=== PATIENT | female | born 1970 | race Caucasian/White ===

== ENCOUNTER → 2017-01-28 07:36 | Outpatient (CLI) | payer OTHER ==
[~2017-01-28] VITALS: Ht 160 cm; Wt 73.6 kg
--- NOTE | ~2017-01-28 | HEMODYNAMI ---
PATIENT:EUGENIE BRIAN MEDICAL RECORD: [id number] : 66 LOCATION:[facility] ADMISSION DATE: 01/28/17 Generatedon:01/28/20179:13 Patient name: EUGENIE BRIAN Patient #: [id number] SSN: : 1970 Date of study: 01/28/2017 Page: Of Hemodynamic Procedure Report Patient Data Patient Demographics Procedure consent was obtained First Name: EUGENIE Gender: Female Last Name: SNEHAL : 1970 Middle Initial: L Age: 46 year(s) Patient #: [id number] Race: Unknown Additional ID: [id number] Contact details [address]: [address] [place] [address] rd State: [place] City: [place] Zip code: [address] Past Medical History Allergies Allergen Reaction Date Comments Reported Other allergy 01/28/2017 morphine, reglan Admission Admission Data Admission Date: 01/28/2017 Admission Time: 7:36 Height (in.): 63 BSA: 1.77 (m2) Height (cm.): 160.02 BMI: 28.7 (kg/m2) Weight (lbs.): 162 Weight (kg.): 73.48 Lab Results Lab Result Date: 01/28/2017 Lab Result Time: 7:55 Biochemistry Name Units Result Min Max BUN mg/dl 14 --(--*-)-- 7 18 Creatinine mg/dl 1.1 --(--*-)-- 0.6 1.3 CBC Name Units Result Min Max Hematocrit % 42.9 --(*---)-- 42 54 Hemoglobin g/dl 14.9 --(-*--)-- 13.5 17.5 Procedure Procedure Types Cath Procedure Diagnostic Procedure [facility] w/Coronaries Miscellaneous Procedures Moderate Sedation up to 15 minutes Procedure Description Procedure Date Procedure Date: 01/28/2017 Procedure Start Time: 9:04 Procedure End Time: 9:12 Procedure Staff Name Function Huy Fitzpatrick MD Performing Physician Avelina Linares RT Scrub Antolin Park RN Nurse Grayson Pickett RT Monitor Procedure Data Cath Procedure Fluoroscopy Diagnostic fluoroscopy Total fluoroscopy Time: 0.7 time: 0.7 min min Diagnostic fluoroscopy Total fluoroscopy dose: 135 dose: 135 mGy mGy Contrast Material Contrast Material Type Amount (ml) Isovue 300 45 Entry Location Entry Primary Successful Side Size Upsize Upsize Entry Closure Succes sful Closure Location (Fr) 1 (Fr) 2 (Fr) Remarks Device Remarks Femoral Right 5 Fr Vascade artery Closure System Estimated blood loss: 5 ml Diagnostic catheters Device Type Used For End Catheter Placement Cordis 5Fr Pigtail Procedure Catheter (MP) Cordis 5Fr JL 4.0 Procedure Catheter (MP) Cordis 5Fr 3DRC Catheter Procedure (MP) Procedure Complications No complications Procedure Medications Medication Administration Route Dosage Oxygen NC 2 l/min Heparin Flush Bag added to field 2 bags (1000units/500ml NS) Benadryl I.V. 50 mg 0.9% NaCl I.V. 100 ml/hr Fentanyl I.V. 50 mcg Versed I.V. 1 mg Fentanyl I.V. 50 mcg Versed I.V. 1 mg Fentanyl I.V. 50 mcg Hemodynamics Rest BSA: 1.77 (m2) HGB: 14.9 (g/dl) O2 Consumption: Estimated: 174.63 (ml/min) O2 Co nsumption indexed: Estimated:98.66 (ml/min/m) Heart Rate: 70 (bpm) Snapshots Pre Cath Intra NCS Post Cath Vital Signs Time Heart Resp SPO2 etCO2 LH9owey NIBP (mmHg) Rhythm Pain Sedation Rate (ipm) (%) (mmHg) (mmHg) Status Level (bpm) 8:46:31 85 20 99 0 0 141/87(109) NSR 0 (11) 10(A) , No pain 8:50:43 71 20 98 0 0 146/83(120) NSR 0 (11) 10(A) , No pain 8:55:29 73 17 100 0 0 144/86(122) NSR 0 (11) 10(A) , No pain 8:59:41 92 19 98 0 0 148/88(118) NSR 0 (11) 10(A) , No pain 9:03:53 86 17 94 0 0 125/80(105) NSR 0 (11) 10(A) , No pain 9:08:01 86 18 94 0 0 125/84(113) NSR 0 (11) 9(A) , No pain 9:10:55 96 18 95 0 0 131/80(108) NSR 0 (11) 9(A) , No pain Medications Time Medication Route Dose Verified Delivered Reason Notes Effect iveness by by 8:55:27 Oxygen NC 2 Antolin Antolin Per l/min Xavier Park RN physician RN 8:55:36 Heparin Flush added 2 Antolin Antolin used for Bag to bags Xavier Park RN procedure (1000units/500ml field RN NS) 8:55:44 Benadryl I.V. 50 mg Antolin Antolin Per Xavier Park RN physician RN 8:55:55 0.9% NaCl I.V. 100 Antolin Antolin Per ml/hr Xavier Park RN physician RN 9:03:44 Fentanyl I.V. 50 Antolin Antolin for [facility] Xavier Park RN sedation RN 9:03:52 Versed I.V. 1 mg Antolin Antolin for Xavier Park RN sedation RN 9:05:15 Fentanyl I.V. 50 Antolin Antolin for rishi Park RN sedation RN 9:05:20 Versed I.V. 1 mg Antolin Antolin for Xavier Park RN sedation RN 9:06:05 Fentanyl I.V. 50 Antolin Antolin for [facility] Xavier Park RN sedation needle leader Log Time Note 8:17:44 Antolin Park RN sent for patient. Start room use. 8:20:18 Time tracking: Regular hours 8:20:23 Plan of Care:Hemodynamics will remain stable., Cardiac rhythm will remain stable., Comfort level will be maintained., Respiratory function will remain adequate., Patient/ family verbilizes understanding of procedure., Procedure tolerated without complication., Recovers from procedure without complications.. 8:37:49 Patient received from Pre/Post Procedure Room to CCL 1 Alert and oriented. Tansferred to table in Supine position. 8:37:50 Warm blankets applied, and ximena hugger turned on for patient comfort. 8:37:50 Correct patient and procedure confirmed by team. 8:37:52 Signed procedure consent form obtained from patient. 8:37:53 ECG and BP/O2 sat monitors applied to patient. 8:37:54 Full Disclosure recording started 8:38:11 H&P Date Dictated: 01/06/2017 Within 30 days and on chart., H&P Addendum completed by physician on day of procedure. (MUST COMPLETE FOR ALL OUTPATIENTS). 8:38:16 Pre-procedure instructions explained to patient. 8:38:17 Pre-op teaching completed and patient verbalized understanding. 8:38:19 Family in waiting room. 8:38:33 Patient NPO since Midnight. 8:45:29 Vital chart was started 8:49:29 Baseline sample Acquired. 8:49:37 Rhythm: sinus rhythm 8:50:00 Patient allergic to Other allergymorphine, reglan 8:50:03 Is the patient allergic to Iodine/contrast media? No. 8:50:05 Is patient on blood thinner?Yes 8:50:08 ACC The patient was administered the following blood thiners within the last 24 hours: ACCPlavix 8:50:11 Patient diabetic? No. 8:53:44 HCG/Urine : completed and on chart, negative 8:53:51 Previous problem with sedation/anesthesia? No ? 8:53:52 Snore? Yes 8:53:53 Sleep apnea? Yes 8:53:57 Deviated septum? No 8:53:57 Opens mouth fully? Yes 8:53:58 Sticks out tongue? Yes 8:54:01 Airway obstruction? Yes asthma 8:54:05 Dentures? No ? 8:54:18 Pre procedure: right dorsailis pedis pulse 2+ Normal; easily identifiable; not easily obliterated 8:54:20 Patient pain scale 0/10 ?. 8:54:27 IV patent on arrival in left forearm with 0.9% NaCl at [facility]. 8:55:03 Lab Result : BUN 14 mg/dl 8:55:03 Lab Result : Hemoglobin 14.9 g/dl 8:55:03 Lab Result : Creatinine 1.1 mg/dl 8:55:03 Lab Result : Hematocrit 42.9 % 8:55:06 Lab results completed and on chart. 8:55:27 Oxygen 2 l/min NC was administered by Antolin Park RN; Per physician; 8:55:29 Right groin area was prepped with chlora-prep and draped in sterile fashion 8:55:30 Alarms reviewed by R. N. 8:55:30 Sharps counted by scrub and verified by R.N. 8:55:32 Use device set Femoral Dx 8:55:34 Tegaderm 4 x 4 opened to sterile field. 8:55:34 Acist Manifold opened to sterile field. 8:55:35 Acist Hand Control opened to sterile field. 8:55:36 Heparin Flush Bag (1000units/500ml NS) 2 bags added to field was administered by Antolin Park RN; used for procedure; 8:55:37 Acist Syringe opened to sterile field. 8:55:37 Bag Decanter opened to sterile field. 8:55:37 Medline Cath Pack opened to sterile field. 8:55:38 Terumo 5Fr Marion Sheath opened to sterile field. 8:55:39 St Hung 260cm J .035 wire opened to sterile field. 8:55:39 Diagnostic Infinity 5Fr Multipack catheter opened to sterile field. 8:55:44 Benadryl 50 mg I.V. was administered by Antolin Park RN; Per physician; 8:55:55 0.9% NaCl 100 ml/hr I.V. was administered by Antolin Park RN; Per physician; 8:56:05 Patient Height : 63 cm 8:56:10 Patient Weight : 162 kg 9:03:09 Physician arrived 9:03:10 --------ALL STOP TIME OUT------ 9:03:11 Final Timeout: patient, procedure, and site verified with staff and physician. All members of the team are in agreement. 9:03:12 Right groin site verified by team. 9:03:15 Physical assessment completed. ASA score P 2 - A patient with mild systemic disease as per Huy Fitzpatrick MD. 9:03:18 Sedation plan: IV Moderate Sedation Versed, Fentanyl 9:03:44 Fentanyl 50 mcg I.V. was administered by Antolin Park RN; for sedation; 9:03:52 Versed 1 mg I.V. was administered by Antolin Park RN; for sedation; 9:04:34 Procedure started. 9:04:38 Local anesthetic to right femoral artery with Lidocaine 2% by Huy Fitzpatrick MD.INITIAL ACCESS ONLY 9:04:45 A 5 Fr sheath was inserted into the Right Femoral artery 9:05:11 A Cordis 5Fr Pigtail Catheter (MP) was advanced over the wire and used for Procedure. 9:05:15 Fentanyl 50 mcg I.V. was administered by Antolin Park RN; for sedation; 9:05:18 LV gram done using CARO 9:05:20 Versed 1 mg I.V. was administered by Antolin Park RN; for sedation; 9:05:26 Injector settings: Ml/sec: 10, Volume: 20, 9:05:46 EF : 55 % 9:06:01 Catheter exchanged over wire. 9:06:04 A Cordis 5Fr JL 4.0 Catheter (MP) was advanced over the wire and used for Procedure. 9:06:05 Fentanyl 50 mcg I.V. was administered by Antolin Park RN; for sedation; 9:06:51 Catheter exchanged over wire. 9:06:54 A Cordis 5Fr 3DRC Catheter (MP) was advanced over the wire and used for Procedure. 9:07:46 RCA angiography performed. 9:07:49 Catheter removed. 9:08:00 Vascade 5Fr Closure Device opened to sterile field. 9:08:11 Sheath removed intact; hemostasis achieved with Vascade Closure System to the Right Femoral artery. 9:08:13 Procedure ended.(Physican Out) 9:09:28 Fluoroscopy time 00.70 minutes. 9:09:31 Fluoroscopy dose: 135 mGy 9:09:31 Flurop Dose total: 135 9:09:57 Contrast amount:Isovue 300 45ml. 9:09:58 Sharps counted by scrub and verified by R.N. 9:10:00 Insertion/operative site no bleeding no hematoma. 9:10:02 Post-op/insertion site Right Femoral artery dressed using a 4 x 4 and Tegaderm. 9:10:06 Post right femoral artery:stable, soft, clean and dry 9:10:07 Post Procedure Pulses reassessed and unchanged 9:10:09 Post-procedure physical assessment completed. ASA score P 2 - A patient with mild systemic disease as per Huy Fitzpatrick MD. 9:10:11 Post procedure rhythm: unchanged. 9:10:13 Estimated blood loss: 5 ml 9:10:14 Post procedure instruction explained to patient.Patient verbalizes understanding. 9:10:15 Patient needs reinforcement of post procedure teaching. 9:10:29 Procedure type changed to Cath procedure, Diagnostic procedure, LHC, LHC w/Coronaries, Miscellaneous Procedures, Moderate Sedation up to 15 minutes 9:11:37 Procedure and supply charges have been captured, reviewed, submitted and are correct. 9:11:44 Procedure Complication : No complications 9:11:46 Vital chart was stopped 9:11:47 See physician's report for complete and final results. 9:12:27 Report given to Pre/Post Procedure Room. 9:12:31 Patient transfered to Pre/Post Procedure Room with Stretcher. 9:12:33 Procedure ended. 9:12:33 Full Disclosure recording stopped 9:12:37 End room use (Document Last) Device Usage Item Name Manufacture Quantity Catalog Number Hospital Part Current Minima l Lot# / Charge Number Stock Stock Serial# Code Tegaderm 4 1 [id number] 5 x 4 Acist Acist 1 38525 [id number] [id number] [id number] 5 Manifold [employer] Inc Acist Hand Acist 1 14196 467894 326270 323039 5 Control [employer] Inc Acist Acist 1 04909 426866 996356 274084 20 Syringe Medical [employer] Inc Bag Microtek 1 2002S 943345 24403 307022 5 Decanter Medical Inc. Medline Cardinal 1 [id number] [id number] 18057 742748 5 Cath Pack Health Terumo 5Fr Terumo 1 [id number] 242131 271690 570250 [address] St Hung 1 [id number] 085489 007313 084995 30 260cm J .035 wire Diagnostic Cardinal 1 [id number] 104654 72593 180803 30 Infinity Health 5Fr Multipack catheter Cordis 5Fr Cardinal 1 [id number] 5 Pigtail Health Catheter (MP) Cordis 5Fr Cardinal 1 [id number] 5 JL 4.0 Health Catheter (MP) Cordis 5Fr Cardinal 1 189250 5 3DRC Health Catheter (MP) Vascade Cardiva 1 [id number] 043360 30457 975352 10 5Fr Medical, Closure Inc. Device Signature Audit [place] Stage Time Signature Unsigned Intra-Procedure 01/28/2017 Grayson Pickett 9:13:07 AM RT(R) Signatures Monitor : Grayson Pickett RT Signature : Date : Time : [address] [place] [address]
--- NOTE | ~2017-01-28 | PRO ---
PATIENT:EUGENIE BRIAN MEDICAL RECORD: [id number] : 66 LOCATION:D.CAT ADMISSION DATE: 01/28/17 PROCEDURE PERFORMED BY: AQUILES LEHMAN MD PROCEDURE DATE: 01/28/17 PROCEDURES: 1. Left heart catheterization. 2. Selective coronary angiography. 3. Left ventriculogram. INDICATION: Chest pain compatible with angina. PROCEDURE IN DETAIL: After informed consent was obtained and after detailed explanation of risks, benefits, as well as alternative therapies, the patient elected to proceed with angiogram. The right femoral area was prepped and draped in a normal sterile fashion. The right femoral artery was cannulated via modified Seldinger technique with placement of 5-Tajik sheath. All catheters exchanged through this sheath. FINDINGS: Left ventriculogram was performed in standard CARO view, reveals good cardiac wall motion throughout all segments. Overall ejection fraction estimated at 60%. SELECTIVE CORONARY ANGIOGRAPHY: 1. Left main, left anterior descending, left circumflex, and right coronary artery are all smooth-walled vessels with no angiographic evidence of coronary artery disease. OVERALL IMPRESSION: 1. No angiographic evidence of coronary artery disease. 2. Normal left heart pressures. 3. Normal left ventricular systolic function. 4. Chest pain is noncardiac in etiology. No further cardiac workup needs to be ascertained. AQUILES LEHMAN MD CC: [id number] DICTATION DATE: 01/28/172143 CELL PREPARER: JDARREN 01/28/172143 [facility] [address] [id number]
[~2017-01-28 07:36] MED LIST: BUPROPION XL300 MG PO; CLONAZEPAM0.25 MG/TA PO; DEXILANT60 MG PO; MIRENA20 MCG/24 VG; MUCINEX DM ER1 EAC1 PO; PLAVIX75 MG PO; PROZAC10 MG PO; RELPAX20 MG PO; TOPAMAX50 MG PO
[2017-01-28 07:50] VITALS: BP 131/73; Ht 160 cm; Wt 73.6 kg
[2017-01-28 08:01] LABS: BASOPHILS 0.4 % (0-2); EOSINOPHILS 2.9 % (0-7); HEMATOCRIT 42.9 % (36.0-48.0); HEMOGLOBIN 14.9 g/dL (12-16); IMMATURE GRANULOCYTES 0.1 % (0-5); LYMPHOCYTES 17.2 % (15-50); MCH 31.9 pg (26.0-34.0); MCHC 34.7 g/dL (31.0-37.0); MCV 91.9 fL (80.0-100.0); MEAN PLATELET VOLUME 9.8 fL (7.4-10.4); MONOCYTES 6.5 % (2-11); NEUTROPHILS 72.9 % (40-80); PLATELET COUNT 231 10x3/uL (130-400); RBC 4.67 10x6/uL (4.00-5.40); RDW 12.9 % (11.5-14.5); WBC 6.8 10x3/uL (4.8-10.8)
[2017-01-28 08:18] LABS: HCG SERUM NEGATIVE (NEGATIVE)
[2017-01-28 08:23] LABS: CKMB 0.2 U/L (0.0-3.6); CREATINE KINASE 44 UL (21-215)
[2017-01-28 08:26] LABS: ANION GAP 14.5 mmol/L (8-16); CALCIUM 8.8 mg/dL (8.5-10.1); CARBON DIOXIDE 21.6 mmol/L (21.0-32.0); CREATININE - SERUM 1.1 mg/dL (0.6-1.3); POTASSIUM - SERUM 4.1 mmol/L (3.5-5.1); TROPONIN-I < 0.017 ng/mL (0.000-0.060)
--- NOTE | 2017-01-28 09:40 | NUR ---
0925 RECEIVED PT FROM SENIOR WATER/WASTEWATER ENGINEER. PT IS VERY DROWSY, DENIES ANY C/O AT THIS TIME. NSR, RATE 84, BP 146/83. DRESSING TO RIGHT GROIN IS CDI, AREA IS SOFT AND NONTENDER. PEDAL PULSES PALPABLE. FEET WARM TO TOUCH. FAMILY AT BEDSIDE, CALL LIGHT IN REACH. 0940 DRESSING TO RIGHT GROIN CDI, AREA SOFT AND NONTENDER. PT DROWSY, DENIES ANY C/O. PEDAL PULSES PALPABLE. FAMILY AT BEDSIDE.
--- NOTE | 2017-01-28 10:00 | NUR ---
0955 PT DENIES ANY C/O, RIGHT GROIN DRESSING IS CDI, AREA SOFT AND NONTENDER. RR EVEN AND UNLABORED. FAMILY AT BEDSIDE.
--- NOTE | 2017-01-28 10:30 | NUR ---
1030 5 FR EXOSEAL R/GROIN CDI NO BLEEDING NO HEMATOMA NOTED. VSS WITH CHEST PAIN DENIED PULSES PRESENT. FAMILY AT SIDE
--- NOTE | 2017-01-28 11:11 | NUR ---
R/GROIN CDI NO BLEEDING NO HEMATOMA NOTED. REPOSITIONED TO SITTING WITH HOB UP 30 DEGREES SANDWICH AND COFFEE TO BEDSIDE CHEST PAIN DENIED
--- NOTE | 2017-01-28 11:34 | NUR ---
PIV REMOVED WITH DRESSING APPLIED. VSS WITH CHEST PAIN DENIED. 5 FR EXOSEAL R/GROIN CDI NO BLEEDING NO HEMATOMA NOTED PATIENT UP TO GET DRESSED FOR DISCHARGE HOME
--- NOTE | 2017-01-28 11:51 | NUR ---
VERBAL AND WRITTEN DISCHARGE GONE OVER WITH PATIENT AND FAMILY ALL VERBALIZED UNDERSTANDING. LEFT VIA WC TO PARKING FOR FAMILY TO DRIVE HOME. CHEST PAIN DENIED
== END | disposition home or self-care (01) ==
LOC: D.CATH 07:36
PROVIDERS: Internal Medicine Interventional Cardiology
DX: I20.9 Angina pectoris, unspecified (principal); R07.9 Chest pain, unspecified; Z87.891 Personal history of nicotine dependence; R94.30 Abnormal result of cardiovascular function study, unspecified; Z01.812 Encounter for preprocedural laboratory examination

== ENCOUNTER 2020-01-27 09:28 | Emergency (ER) | payer BC ==
[~2020-01-27] VITALS: Ht 160 cm; Wt 69.5 kg
[2020-01-27 09:43] VITALS: Ht 160 cm; Wt 69.5 kg
[2020-01-27] MEDS ORDERED: TOPAMAX50 MG PO (09:45)
[2020-01-27] MEDS ORDERED: PREVACID30 MG PO (09:45)
[2020-01-27] MEDS ORDERED: LEXAPRO5 MG PO (09:45)
[2020-01-27] MEDS ORDERED: [UNRECOGNIZED DRUG - OTHER] (09:47)
[2020-01-27] MEDS ORDERED: ALBUTEROL SULF8.5 GM INH (10:25)
[2020-01-27] MEDS ORDERED: ZPAK PO (10:25)
[2020-01-27] MEDS ORDERED: MUCINEX DM ER1 EAC1 PO (10:25)
[2020-01-27 10:43] VITALS: BP 118/80
== END 2020-01-27 10:44 | disposition home or self-care (01) ==
LOC: D.ER 09:28
DX: J06.9 Acute upper respiratory infection, unspecified (principal); R05 Cough; J45.909 Unspecified asthma, uncomplicated